=== PATIENT | female | born 1980 | race Caucasian/White ===

== ENCOUNTER 2017-04-17 17:20 | Emergency (ER) | payer BC ==
[2017-04-17] MEDS ORDERED: Acetaminophen TAB* 325 MG PO ONE (18:04)
[2017-04-17] MEDS ORDERED: NS 0.9% 1000 ML* 2,000 ML IV ONE (18:04)
[2017-04-17] MEDS ORDERED: Ketorolac INJ* 30 MG/ML 1 ML VIAL IV ONE (18:04)
[2017-04-17] MEDS ORDERED: Morphine INJ* 4 MG/ML 1 ML SYRINGE IV ONE (18:05)
[2017-04-17 18:33] LABS: Hematocrit 41 % (35-47); Mean Corpuscular HGB Conc 34 g/dl (31-36); Mean Corpuscular Hemoglobin 29 pg (27-31); Mean Corpuscular Volume 86 fL (80-97); Mean Platelet Volume 10 um3 (7.4-10.4); Red Blood Count 4.81 10^6/ul (4.0-5.4); Red Cell Distribution Width 13 % (10.5-15); White Blood Count 17.6 10^3/ul (3.5-10.8)
[2017-04-17 18:53] LABS: Albumin 4.4 g/dL (3.2-5.2); BUN/Creatinine Ratio 12.9 (8-20); C Reactive Protein 61.43 mg/L (< 5.00); Calcium 9.7 mg/dL (8.6-10.3); EGFR African American 121.1 (>60); EGFR Non-African American 94.2 (>60); Globulin 2.8 g/dL (2-4); Potassium 3.3 mmol/L (3.5-5.0); Total Bilirubin 1.4 mg/dL (0.2-1.0); Total Protein 7.2 g/dL (6.4-8.9)
--- NOTE | 2017-04-17 19:19 | ED ---
Denton Bhandari Billy, scribed for Jose David Contreras MD on 04/17/17 at 1838 . Complex/Multi-Sys Presentation - HPI Summary HPI Summary: The patient is a 37 year-old female coming to [facility] for evaluation of left breast pain and swelling as well as accompanying fevers and chills. It appears erythematous and she states it feels warm to touch. The patient has been her 11-month old child, but the left breast has been blocked since last night. The right breast is normal at this time. - History Of Current Complaint Chief Complaint: EDOBProblems Time Seen by Provider: 04/17/17 18:01 Hx Obtained From: Patient Onset/Duration: Gradual Onset Timing: Constant Severity Currently: Moderate Severity Initially: Moderate Location: Pain At: - left breast Aggravating Factor(s): none Alleviating Factor(s): none Associated Signs And Symptoms: Positive: Fever, Other - erythema PMH/Surg Hx/FS Hx/Imm Hx Sensory History: Denies: Hx Legally Blind EENT History: Denies: Hx Deafness Infectious Disease History: No Infectious Disease History: Denies: Traveled Outside the [place] in Last 30 Days - Family History Family History: The patient only mentions that her father is allergic to penicillin. - Social History Alcohol Use: None Substance Use Type: Reports: None Smoking Status (MU): Never Smoked Tobacco Review of Systems Positive: Fever, Chills Musculoskeletal: Other - left breast pain with swelling Skin: Other - erythema of the left breast All Other Systems Reviewed And Are Negative: Yes Physical Exam - Summary Physical Exam Summary: The patient is well-nourished in pain distress. The skin is warm and diaphoretic and skin color reflects adequate perfusion. HEENT: The head is normocephalic and atraumatic. The pupils are equal and reactive. The conjunctivae are clear and without drainage. Nares are patent and without drainage. Mouth reveals moist mucous membranes and the throat is without erythema and exudate. The external ears are intact. Neck is supple with full range of motion and non-tender. There are no carotid bruits. There is no neck vein distension. Respiratory: Chest is non-tender. Lungs are clear to auscultation and breath sounds are symmetrical and equal. Cardiovascular: Heart is tachycardic. There is no murmur or rub auscultated. There is no peripheral edema and pulses are symmetrical and equal. Abdomen: The abdomen is soft and non-tender. There are normal bowel sounds heard in all four quadrants and there is no organomegaly palpated. Musculoskeletal: There is no back pain noted. Extremities are non-tender with full range of motion. There is good capillary refill. There is no peripheral edema or calf tenderness elicited. Left breast is markedly enlarged, warm to touch, erythematous, does not appear fluctuant, does not appear to have an abscess, nipple is enlarged, no milk draining from the nipple. Neurological: Patient is alert and oriented to person, place and time. The patient has symmetrical motor strength in all four extremities. Cranial nerves are grossly intact. Deep tendon reflexes are symmetrical and equal in all four extremities. Psychiatric: The patient is anxious. Triage Information Reviewed: Yes Vital Signs On Initial Exam: Initial Vitals Temp Pulse Resp BP Pulse Ox 100.4 F 114 22 142/72 100 04/17/17 17:21 04/17/17 17:21 04/17/17 17:21 04/17/17 17:21 04/17/17 17:21 Vital Signs Reviewed: Yes Diagnostics - Vital Signs Vital Signs Temp Pulse Resp BP Pulse Ox 04/17/17 18:27 103.1 F 119 20 142/72 100 04/17/17 17:24 100.5 F 119 22 142/72 100 04/17/17 17:21 100.4 F 114 22 142/72 100 - Laboratory Lab Results: Lab Results 04/17/17 04/17/17 04/17/17 Range/Units 18:17 18:17 18:17 WBC 17.6 H (3.5-10.8) 10^3/ul RBC 4.81 (4.0-5.4) 10^6/ul Hgb 14.0 (12.0-16.0) g/dl Hct 41 (35-47) % MCV 86 (80-97) fL MCH 29 (27-31) pg MCHC 34 (31-36) g/dl RDW 13 (10.5-15) % Plt Count 153 (150-450) 10^3/ul MPV 10 (7.4-10.4) um3 Neut % (Auto) 92.6 H (38-83) % Lymph % (Auto) 4.8 L (25-47) % Cavalier % (Auto) 2.4 (1-9) % Eos % (Auto) 0 (0-6) % Baso % (Auto) 0.2 (0-2) % Absolute Neuts (auto) 16.3 H (1.5-7.7) 10^3/ul Absolute Lymphs (auto) 0.9 L (1.0-4.8) 10^3/ul Absolute Monos (auto) 0.4 (0-0.8) 10^3/ul Absolute Eos (auto) 0 (0-0.6) 10^3/ul Absolute Basos (auto) 0 (0-0.2) 10^3/ul Absolute Nucleated RBC 0.01 10^3/ul Nucleated RBC % 0 INR (Anticoag Therapy) 1.17 H (0.89-1.11) APTT 27.1 (26.0-36.3) seconds Sodium 133 (133-145) mmol/L Potassium 3.3 L (3.5-5.0) mmol/L Chloride 101 (101-111) mmol/L Carbon Dioxide 20 L (22-32) mmol/L Anion Gap 12 H (2-11) mmol/L BUN 9 (6-24) mg/dL Creatinine 0.70 (0.51-0.95) mg/dL Est GFR ( Amer) 121.1 (>60) Est GFR (Non-Af Amer) 94.2 (>60) BUN/Creatinine Ratio 12.9 (8-20) Glucose 111 H (70-100) mg/dL Lactic Acid (0.5-2.0) mmol/L Calcium 9.7 (8.6-10.3) mg/dL Total Bilirubin 1.40 H (0.2-1.0) mg/dL AST 18 (13-39) U/L ALT 13 (7-52) U/L Alkaline Phosphatase 81 (34-104) U/L C-Reactive Protein 61.43 H (< 5.00) mg/L Total Protein 7.2 (6.4-8.9) g/dL Albumin 4.4 (3.2-5.2) g/dL Globulin 2.8 (2-4) g/dL Albumin/Globulin Ratio 1.6 (1-3) 05// Range/Units 18:17 WBC (3.5-10.8) 10^3/ul RBC (4.0-5.4) 10^6/ul Hgb (12.0-16.0) g/dl Hct (35-47) % MCV (80-97) fL MCH (27-31) pg MCHC (31-36) g/dl RDW (10.5-15) % Plt Count (150-450) 10^3/ul MPV (7.4-10.4) um3 Neut % (Auto) (38-83) % Lymph % (Auto) (25-47) % Cavalier % (Auto) (1-9) % Eos % (Auto) (0-6) % Baso % (Auto) (0-2) % Absolute Neuts (auto) (1.5-7.7) 10^3/ul Absolute Lymphs (auto) (1.0-4.8) 10^3/ul Absolute Monos (auto) (0-0.8) 10^3/ul Absolute Eos (auto) (0-0.6) 10^3/ul Absolute Basos (auto) (0-0.2) 10^3/ul Absolute Nucleated RBC 10^3/ul Nucleated RBC % INR (Anticoag Therapy) (0.89-1.11) APTT (26.0-36.3) seconds Sodium (133-145) mmol/L Potassium (3.5-5.0) mmol/L Chloride (101-111) mmol/L Carbon Dioxide (22-32) mmol/L Anion Gap (2-11) mmol/L BUN (6-24) mg/dL Creatinine (0.51-0.95) mg/dL Est GFR ( Amer) (>60) Est GFR (Non-Af Amer) (>60) BUN/Creatinine Ratio (8-20) Glucose (70-100) mg/dL Lactic Acid 1.1 (0.5-2.0) mmol/L Calcium (8.6-10.3) mg/dL Total Bilirubin (0.2-1.0) mg/dL AST (13-39) U/L ALT (7-52) U/L Alkaline Phosphatase (34-104) U/L C-Reactive Protein (< 5.00) mg/L Total Protein (6.4-8.9) g/dL Albumin (3.2-5.2) g/dL Globulin (2-4) g/dL Albumin/Globulin Ratio (1-3) Result Diagrams: 04/17/17 18:17 04/17/17 18:17 Lab Statement: Any lab studies that have been ordered have been reviewed, and results considered in the medical decision making process. Re-Evaluation - Re-Evaluation First Eval Re-Evaluation Time: 19:12 Change: Improved Complex Multi-Symp Course/Dx Assessment/Plan: 37 year-old female coming to the ED for evaluation of left breast pain. In the ED course, she was given Tylenol for her fever, hydrated with IV fluids, Kefzol, and Toradol and Morphine for pain. On exam, there is no evidence of abscess or fluctuant fluid collection. She felt much better on re- evaluation. She will be discharged with Keflex and Percocet to follow up with [facility]. - Diagnoses Differential Diagnoses/HQI/PQRI: Other - abscess, cellulitis, mastitis Provider Diagnoses: Mastitis Discharge - Discharge Plan Condition: Stable Disposition: HOME Prescriptions: Cephalexin CAP* [Keflex CAP*] 500 mg PO QID #28 cap oxyCODONE/Acetamin 5/325 MG* [Percocet 5/325 TAB*] 1 tab PO Q6H PRN #20 tab MDD 4 PRN Reason: pain Patient Education Materials: Mastitis (ED) Referrals: [facility] [Provider Group] [facility] [Outside] The documentation as recorded by the Denton vieyra Billy accurately reflects the service I personally performed and the decisions made by me, Jose David Contreras MD.
[2017-04-17 20:06] VITALS: BP 112/64
== END 2017-04-17 20:00 | disposition home or self-care (01) ==
LOC: ED 17:20
DX: N61.0 Mastitis without abscess (principal)
CPT/HCPCS: 36415; 80053; 83605; 85025; 85610; 85730; 86140; 87040; 96360; 96374; 96375; 99283; A9270-GY; J0690; J1885; J2270

== ENCOUNTER 2019-11-07 11:30 | Day surgery (SDC) | payer BC ==
[2019-11-07] MEDS ORDERED: Buffered Lidocaine 1% SYRIN* 1 ML/SYRINGE INTRADERM ONE ×2 (11:48→12:33)
[2019-11-07] MEDS ORDERED: Lactated Ringers 1000 ML Bag* 1,000 ML IV SCH (12:00)
[2019-11-07] MEDS ORDERED: Misoprostol TAB* 200 MCG ONE (12:39)
[2019-11-07] MEDS ORDERED: Lidocaine 1% INJ* 10 MG/ML 30 ML SDV ONE (12:39)
[2019-11-07] MEDS ORDERED: DiMENhydriNATE IV* 50 MG/ML VIAL IV PUSH PRN (12:53)
[2019-11-07] MEDS ORDERED: Naloxone* 0.4 MG/ML 1 ML VIAL IV PRN (12:53)
[2019-11-07] MEDS ORDERED: oxyCODONE TAB* 5 MG TAB PO PRN (12:53)
[2019-11-07] MEDS ORDERED: fentaNYL* 50 MCG/ML 2 ML VIAL (100 MCG VIAL) IV PRN (12:53)
[2019-11-07] MEDS ORDERED: Acetaminophen TAB* 325 MG PO PRN (12:53)
[2019-11-07] MEDS ORDERED: DOXYcycline IV 200 MG in NS 250 mL *Pre-Op OBGYN IVPB ONE (13:00)
[2019-11-07] MEDS ORDERED: Midazolam* 1 MG/ML 2 ML VIAL (2 MG) ONE (13:14)
[2019-11-07] MEDS ORDERED: fentaNYL* 50 MCG/ML 2 ML VIAL (100 MCG VIAL) ONE (13:14)
[2019-11-07] MEDS ORDERED: Dexamethasone IV* 4 MG/ML 1 ML (4 MG) ONE (13:52)
[2019-11-07] MEDS ORDERED: Metoclopramide IV* 5 MG/ML 2 ML VIAL ONE (13:52)
[2019-11-07] MEDS ORDERED: Propofol* 10 MG/ML 20 ML BTL ONE (13:52)
[2019-11-07] MEDS ORDERED: Ketorolac INJ* 30 MG/ML 1 ML VIAL ONE (13:52)
[2019-11-07] MEDS ORDERED: Ondansetron INJ* 2 MG/ML VIAL ONE (13:52)
[2019-11-07] MEDS ORDERED: Lidocaine 2% PF * 5 ML VIAL ONE (13:52)
[2019-11-07 15:12] VITALS: BP 149/102
--- NOTE | 2019-11-07 21:56 | OP ---
DATE OF OPERATION: 11/07/19 - LOCATED WITHIN [facility] DATE OF : 80 SURGEON: Yulisa Delacruz MD NIGHT CLERK AUDITOR: None. PRE-OP DIAGNOSIS: Missed , 8 plus weeks. POST-OP DIAGNOSIS: Missed , 8 plus weeks. OPERATIVE PROCEDURE: Dilation, evacuation, curettage. ESTIMATED BLOOD LOSS: 200 cc. URINE OUTPUT: 150 cc of clear yellow urine. FLUIDS: 300 cc of crystalloid. FINDINGS: Revealed intrauterine contents consistent with products of conception. SPECIMEN: Intrauterine contents. COMPLICATIONS: None apparent. DISPOSITION: Stable to recovery room. DESCRIPTION OF PROCEDURE: The patient was placed in dorsal lithotomy position. Legs were placed in [place] Rob stirrups. Perineum and vagina were prepped and draped in a sterile standard fashion. The patient was identified with universal protocol for correct procedure, patient, and position. Bladder was drained for 150 cc of clear yellow urine by self-cath. Self-cath removed. Sterile speculum inserted. A paracervical block was then carried out for a total of 10 cc of 1% lidocaine. Single-tooth tenaculum was placed on the anterior lip and dilated to #11 Hegar dilator. A 10-mm curved suction curette was then applied for complete evacuation of the anterior uterine contents. Sharp curettage was performed confirming evacuation and removal from all 4 quadrants of the uterus. Single-tooth tenaculum was removed. Misoprostol 600 mcg was placed after speculum was removed and hemostasis was assured. The patient was then taken out of dorsal lithotomy position. Legs were placed flat and then the patient was taken to the recovery room in stable condition. [id number]/[facility] #: [id number] [facility] HOSPITALJoyce
== END 2019-11-07 15:51 | disposition home or self-care (01) ==
LOC: OR 11:30
PROVIDERS: ATTEND Obstetrics & Gynecology
DX: O02.1 Missed abortion (principal)
CPT/HCPCS: 88305; A9270-GY; J1100; J1885; J2250; J2405; J2704; J2765; J3010

== ENCOUNTER 2022-05-22 05:57 | Inpatient (IN) ==
[2022-05-22] MEDS ORDERED: Sodium Citrate/Citric Acid LIQ 15 ML UDC PO ONE (06:00)
[2022-05-22] MEDS ORDERED: Buffered Lidocaine 1% SYRIN 1 ml INTRADERM ONE (06:00)
[2022-05-22] MEDS ORDERED: Lactated Ringers 1000 ml BAG 1,000 ML IV SCH ×2 (06:00→10:00)
[2022-05-22] MEDS ORDERED: ceFAZolin 2 GM PREMIX 0 GM/0 ML BAG ONE (06:05)
[2022-05-22] MEDS ORDERED: ceFOXitin 2 GM PREMIX 50 ML IVPB ONE (06:05)
[2022-05-22] MEDS ORDERED: ceFOXitin 2 GM IVPREMIX 2 GM/50 ML BAG ONE (06:07)
[2022-05-22 06:47] LABS: ABS Eosinophils 0.1 10^3/ul (0-0.6); ABS Monocytes 0.6 10^3/ul (0-0.8); ABS Neutrophils 7.4 10^3/ul (1.5-7.7); Eosinophil % 0.8 %; Hematocrit 37 % (35-47); Lymphocyte % 27.1 %; Mean Corpuscular HGB Conc 35 g/dL (31-36); Mean Corpuscular Hemoglobin 31 pg (27-31); Mean Corpuscular Volume 90 fL (80-97); Mean Platelet Volume 11.2 fL (7.4-10.4); Platelet Count 203 10^3/uL (150-450); Red Blood Count 4.14 10^6 /uL (3.70-4.87); Red Cell Distribution Width 14 % (10-15); White Blood Count 11.2 10^3/uL (3.5-10.8)
[2022-05-22 07:09] LABS: Urine Benzodiazepine Screen None Detected (None Detect); Urine Cannabinoids Screen None Detected (None Detect); Urine Opiates Screen None Detected (None Detect)
[2022-05-22] MEDS ORDERED: Morphine PF AMP (0.5MG/ML) 5 MG/10 ML AMP ONE (07:27)
[2022-05-22] MEDS ORDERED: Oxytocin 10 UNITS/ML 1 ML VIAL ONE (07:28)
[2022-05-22] MEDS ORDERED: Dexamethasone IV 4 MG/ML VIAL 1 ml VIAL ONE (07:28)
[2022-05-22] MEDS ORDERED: Ondansetron 4 mg VIAL 2 MG/ML 2 ml VIAL ONE (07:28)
[2022-05-22] MEDS ORDERED: fentaNYL 100 mcg/2 ml 50 MCG/ML VIAL IV PRN (07:34)
[2022-05-22] MEDS ORDERED: Acetaminophen IV 1 GM/100ML 100 ML IV ONE (07:34)
[2022-05-22] MEDS ORDERED: Prochlorperazine 5 mg/ml 2 ml VIAL (10 mg) IV PRN ×2 (07:34→08:23)
[2022-05-22] MEDS ORDERED: Naloxone 0.4 mg VIAL 0.4 mg/ml 1 ml VIAL IV PRN ×2 (07:34→08:23)
[2022-05-22] MEDS ORDERED: Ondansetron 4 mg VIAL 2 MG/ML 2 ml VIAL IV PRN (08:23)
[2022-05-22] MEDS ORDERED: Scopolamine 1 mg/72hr PATCH TRANSDERM PRN (08:23)
[2022-05-22 08:47] LABS: Urine Appearance Clear; Urine Bilirubin Negative (Negative); Urine Blood Negative (Negative); Urine Color Straw; Urine Glucose Negative (Negative); Urine Ketones Negative (Negative); Urine Nitrite Negative (Negative); Urine Protein Negative (Negative); Urine Specific Gravity 1.003 (1.002-1.030); Urine Urobilinogen Negative (Negative)
[2022-05-22] MEDS ORDERED: Dibucaine 1% OINT 28.35 GM TUBE PR PRN (09:11)
[2022-05-22] MEDS ORDERED: Methylergonovine 0.2 mg AMPULE 1 ml AMP IM ONE (09:11)
[2022-05-22] MEDS ORDERED: Glycerin ADULT 2.4 gm SUPP PR PRN (09:11)
[2022-05-22] MEDS ORDERED: Witch Hazel PAD JAR TOPICAL PRN (09:11)
[2022-05-22] MEDS ORDERED: Oxytocin in LR 20 UNITS/1,000 ML BAG IVPB SCH (10:00)
[2022-05-23 06:09] LABS: ABS Eosinophils 0.1 10^3/ul (0-0.6); ABS Lymphocytes 3.8 10^3/ul (1.0-4.8); ABS Monocytes 0.9 10^3/ul (0-0.8); ABS Neutrophils 9.9 10^3/ul (1.5-7.7); Eosinophil % 0.4 %; Hematocrit 33 % (35-47); Hemoglobin 11.3 g/dL (12.0-16.0); Lymphocyte % 25.8 %; Mean Corpuscular HGB Conc 35 g/dL (31-36); Mean Corpuscular Hemoglobin 32 pg (27-31); Mean Corpuscular Volume 92 fL (80-97); Mean Platelet Volume 10.7 fL (7.4-10.4); Platelet Count 165 10^3/uL (150-450); Red Blood Count 3.56 10^6 /uL (3.70-4.87); Red Cell Distribution Width 14 % (10-15); White Blood Count 14.6 10^3/uL (3.5-10.8)
[2022-05-24 07:49] VITALS: BP 137/77
== END 2022-05-24 12:08 | disposition home or self-care (01) | DRG 787 ==
LOC: MCHOB 05:57
PROVIDERS: ADMIT Obstetrics & Gynecology; ATTEND Obstetrics & Gynecology